=== PATIENT | female | born 1990 | race Caucasian/White ===

== ENCOUNTER 2017-01-27 09:13 | Emergency (ER) | payer OTHER ==
--- NOTE | 2017-01-27 09:43 | ED ---
- HPI Summary HPI Summary: 26F LMP Dec 20 at 5 weeks presents with vaginal bleeding for two days. She states that it started as spotting two days ago. The spotting has gotten worst. She is passing little clots. She admits to mild abdominal cramping. She denies any nausea, vomiting, diarrhea or constipation. She denies any dysuria or flank pain. She denies any fever. She denies any abnormal vaginal discharge. She denies any chest pain, SOB, tachycardia, or dizziness. - History of Current Complaint Chief Complaint: EDVaginalBleeding Stated Complaint: 5WKS PREG/VAG BLEEDING Time Seen by Provider: 01/27/17 09:20 Pain Intensity: 1 - Allergies/Home Medications Allergies/Adverse Reactions: Allergies Allergy/AdvReac Type Severity Reaction Status Date / Time No Known Allergies Allergy Verified 01/27/17 09:19 PMH/Surg Hx/FS Hx/Imm Hx Endocrine/Hematology History: Denies: Hx Anticoagulant Therapy Cardiovascular History: Denies: Hx Hypertension Infectious Disease History: No Infectious Disease History: Denies: Traveled Outside the [place] in Last 30 Days - Family History Known Family History: Negative: Blood Disorder Review of Systems Negative: Fever Negative: Chest Pain Negative: Shortness Of Breath Positive: Other - vaginal bleeding. Negative: Vomiting, Diarrhea, Nausea All Other Systems Reviewed And Are Negative: Yes Physical Exam - Physical Exam Triage Information Reviewed: Yes Vital Signs Reviewed: Yes Appearance: Positive: Well-Appearing Skin: Positive: Warm, Dry Head/Face: Positive: Normal Head/Face Inspection Eyes: Positive: Normal, EOMI, WILFREDO, Conjunctiva Clear ENT: Positive: Normal ENT inspection, Pharynx normal, TMs normal Respiratory/Lung Sounds: Positive: Clear to Auscultation, Breath Sounds Present Cardiovascular: Positive: Normal, RRR Abdomen Description: Positive: Nontender, Soft Bowel Sounds: Positive: Present Musculoskeletal: Positive: Normal Neurological: Positive: Normal Psychiatric: Positive: Normal Diagnostics - Vital Signs Vital Signs Temp Pulse Resp BP Pulse Ox 01/27/17 09:15 97.9 F 104 16 144/95 100 - Laboratory Result Diagrams: 01/27/17 09:52 01/27/17 09:52 Lab Statement: Any lab studies that have been ordered have been reviewed, and results considered in the medical decision making process. Course/Dx - Course Course Of Treatment: 26F LMP Dec 20 at 5 weeks presents with vaginal bleeding for two days. She states that it started as spotting two days ago. The spotting has gotten worst. She is passing little clots. She admits to mild abdominal cramping. She denies any nausea, vomiting, diarrhea or constipation. She denies any dysuria or flank pain. She denies any fever. She denies any abnormal vaginal discharge. She denies any chest pain, SOB, tachycardia, or dizziness. on exam abdomen soft nontender. labs normal. hcg is 47. explained that if is suppose to be at 5 weeks and hcg is that low is most likely a miscarriage. unable to do u/s as hcg is too low. will have follow up with obgyn to make sure hcg trends downward. patient understand and agrees with plan. - Differential Diagnosis/HQI/PQRI: Incomplete , Spontaneous , Threatened , Intrauterine - Diagnoses Provider Diagnoses: Elevated serum hCG, Vaginal bleeding Discharge - Discharge Plan Condition: Good Disposition: HOME Patient Education Materials: Miscarriage (ED) Referrals: Eulalia Delgado MD [Primary Care Provider] - Joanne Vega MD [Medical Doctor] - Additional Instructions: You are most likely miscarrying Can take Tylenol for pain every 6 hours Follow up with obgyn or primary for repeat blood work Return to ED if develop fever, severe pain, or any new or worsening symptoms
[2017-01-27 10:01] LABS: Hematocrit 42 % (35-47); Hemoglobin 14.7 g/dl (12.0-16.0); Mean Corpuscular HGB Conc 35 g/dl (31-36); Mean Corpuscular Hemoglobin 30 pg (27-31); Mean Corpuscular Volume 86 fL (80-97); Mean Platelet Volume 8 um3 (7.4-10.4); Red Blood Count 4.92 10^6/ul (4.0-5.4); Red Cell Distribution Width 12 % (10.5-15); White Blood Count 4.3 10^3/ul (3.5-10.8)
[2017-01-27 10:02] LABS: Urine Bacteria Absent (Absent); Urine Bilirubin Negative (Negative); Urine Glucose Negative (Negative); Urine Nitrite Negative (Negative)
[2017-01-27 10:16] LABS: BUN/Creatinine Ratio 11.5 (8-20); EGFR Non-African American 116.8 (>60); Potassium 3.7 mmol/L (3.5-5.0)
[2017-01-27 10:17] LABS: Albumin 4.8 g/dL (3.2-5.2); Calcium 9.9 mg/dL (8.6-10.3); EGFR African American 150.2 (>60); Globulin 2.7 g/dL (2-4); Total Bilirubin 0.5 mg/dL (0.2-1.0); Total Protein 7.5 g/dL (6.4-8.9)
[2017-01-27 11:30] VITALS: BP 110/79
== END 2017-01-27 11:29 | disposition home or self-care (01) ==
LOC: ED 09:13
DX: O46.91 Antepartum hemorrhage, unspecified, first trimester (principal); Z3A.01 Less than 8 weeks gestation of pregnancy
CPT/HCPCS: 36415; 80053; 81003; 81015; 84702; 85025; 85610; 85730; 86900; 86901; 99282

== ENCOUNTER 2017-02-05 11:04 | Emergency (ER) | payer OTHER ==
[2017-02-05 11:13] VITALS: BP 122/75
--- NOTE | 2017-02-05 16:07 | ED ---
Complex/Multi-Sys Presentation - HPI Summary HPI Summary: 27 female presents to ED for repeat HCG testing as it is not covered by her PCP. Denies any symptoms currently. Was experiencing a miscarriage and vaginal bleeding however has resolved. No other complaints. No PMHx. - History Of Current Complaint Chief Complaint: EDGeneral Time Seen by Provider: 02/05/17 11:49 Hx Obtained From: Patient Severity Currently: None Location: Negative Aggravating Factor(s): none Alleviating Factor(s): none - Allergies/Home Medications Allergies/Adverse Reactions: Allergies Allergy/AdvReac Type Severity Reaction Status Date / Time No Known Allergies Allergy Verified 02/05/17 11:11 PMH/Surg Hx/FS Hx/Imm Hx Endocrine/Hematology History: Denies: Hx Anticoagulant Therapy Cardiovascular History: Denies: Hx Hypertension - Surgical History Surgery Procedure, Year, and Place: none - Immunization History Immunizations Up to Date: Yes Infectious Disease History: No Infectious Disease History: Denies: Traveled Outside the [place] in Last 30 Days - Family History Known Family History: Negative: Blood Disorder - Social History Alcohol Use: Rare Substance Use Type: Reports: None Smoking Status (MU): Never Smoked Tobacco Review of Systems Constitutional: Negative Cardiovascular: Negative Respiratory: Negative Gastrointestinal: Negative Genitourinary: Negative All Other Systems Reviewed And Are Negative: Yes Physical Exam Triage Information Reviewed: Yes Vital Signs On Initial Exam: Initial Vitals Temp Pulse Resp BP Pulse Ox 98.2 F 87 16 122/75 96 02/05/17 11:11 02/05/17 11:11 02/05/17 11:11 02/05/17 11:11 02/05/17 11:11 Vital Signs Reviewed: Yes Appearance: Positive: Well-Appearing, No Pain Distress, Well-Nourished Skin: Positive: Warm, Skin Color Reflects Adequate Perfusion, Dry Respiratory/Lung Sounds: Positive: Clear to Auscultation, Breath Sounds Present. Negative: Rales, Rhonchi, Wheezes Cardiovascular: Positive: Normal, RRR, Pulses are Symmetrical in both Upper and Lower Extremities. Negative: Murmur, Rub Diagnostics - Vital Signs Vital Signs Temp Pulse Resp BP Pulse Ox 02/05/17 11:11 98.2 F 87 16 122/75 96 - Laboratory Lab Results: Lab Results 02/05/17 Range/Units 11:53 Beta HCG, Quant 1.28 mIU/mL Lab Statement: Any lab studies that have been ordered have been reviewed, and results considered in the medical decision making process. Complex Multi-Symp Course/Dx Course Of Treatment: hcg was obtained and 1.8. last taken 01/27 and was 47. Is decreasing and appears to have completed miscarriage. Follow up OBGYN. no other complaints at this time. - Diagnoses Provider Diagnoses: Normal exam, Routine lab draw Discharge - Discharge Plan Condition: Stable Disposition: HOME Referrals: [facility] [place] [facility]ERR[facility] [Outside] No Primary Care Phys,NOPCP [Primary Care Provider] - Additional Instructions: Follow up with OBGYN. Return if any new or worsening symptoms.
== END 2017-02-05 13:20 | disposition home or self-care (01) ==
LOC: ED 11:04
DX: Z32.02 Encounter for pregnancy test, result negative (principal)
CPT/HCPCS: 36415; 84702; 99281